=== PATIENT | male | born 1960 | race Caucasian/White ===

== ENCOUNTER 2016-07-31 16:26 | Emergency (ER) | payer BC ==
[~2016-07-31] VITALS: Ht 170.2 cm; Wt 71.0 kg
[~2016-07-31 16:26] MED LIST: ASPI325T4 PO; ATOR10TA65 PO; IBUP-1542 PO; OXYC-281 PO
[2016-07-31 16:29] VITALS: Ht 170.2 cm; Wt 71.0 kg
[2016-07-31] MEDS ORDERED: morphine 4 MG/ML VIAL IV STA (17:02)
[2016-07-31] MEDS ORDERED: ONDANSETRON 4 MG INJ IV STA (17:02)
[2016-07-31] MEDS ORDERED: SOD CHLORIDE 0.9% 1,000 ML IV STA (17:02)
[2016-07-31 17:18] LABS: ADD SCAN DIFF NO
[2016-07-31 17:20] LABS: BASOPHIL # 0.1 10^3/ul (0.0-0.1); BASOPHILS % 0.7 % (0.0-2.0); EOSINOPHILS # 0.2 10^3/ul (0.0-0.5); EOSINOPHILS % 1.8 % (0.0-7.0); HEMATOCRIT 43.7 % (42.0-52.0); HEMOGLOBIN 14.5 g/dl (14.0-18.0); LYMPHOCYTES # 3.2 10^3/ul (0.8-2.9); MEAN CORPUSCULAR HEMOGLOBIN 31.7 pg (29.0-33.0); MEAN CORPUSCULAR HGB CONC 33.2 g/dl (32.0-37.0); MEAN CORPUSCULAR VOLUME 95.4 fl (82.0-101.0); MEAN PLATELET VOLUME 9.9 fl (7.4-10.4); MONOCYTE # 0.5 10^3/ul (0.3-0.9); MONOCYTES % 6.4 % (0.0-11.0); NEUTROPHIL # 4.4 10^3/ul (1.6-7.5); NEUTROPHILS % 52.3 % (39.0-77.0); PLATELET COUNT 425 10^3/UL (140-415); RED BLOOD COUNT 4.58 10^6/ul (4.70-6.10); RED CELL DISTRIBUTION WIDTH 12.1 % (11.5-14.5); WHITE BLOOD COUNT 8.4 10^3/ul (4.8-10.8)
--- NOTE | 2016-07-31 17:24 | ERD ---
ER Documentation Chief Complaint Date/Time DATE: 07/31/16 TIME: 17:23 Chief Complaint RLQ PAIN SINCE THIS AM; DENIES N/V HPI Patient is a 56-year-old male who presents to the ED with right lower quadrant abdominal and right lower inguinal pain 1 day. He states that yesterday he felt a mild sharp pain in his groin. He states that the pain is gotten worse and is now constant. However he states that the pain is relieved when he lays down. She has never had this pain in the past. Denies nausea or vomiting or diarrhea. Denies chest pain or cough or shortness of breath. States that he had a bowel movement yesterday and does not have a history of constipation. Denies headache or dizziness. He has not taken any medicine besides Aleve which was this morning for his symptoms. ROS All systems reviewed and are negative except as per history of present illness. Medications Home Meds Active Scripts Naproxen* (Naprosyn*) 500 Mg Tablet, 500 MG PO BID Y for PAIN AND/OR INFLAMMATION, #30 TAB Prov:ASHLYN HERNANDEZ PA-C 07/31/16 Oxycodone Hcl-Acetaminophen* (Percocet*) 5-325 Mg Tablet, 1 TAB PO Q4H Y for PAIN, #9 TAB Prov:LINDEN RAMSAY MD 10/07/15 Ibuprofen* (Ibuprofen*) 600 Mg Tablet, 600 MG PO Q8 for PAIN AND/OR INFLAMMATION , #30 TAB Prov:LINDEN RAMSAY MD 10/07/15 Reported Medications Aspirin* (Aspirin*) 325 Mg Tablet, 325 MG PO DAILY, TAB 10/07/15 Atorvastatin Calcium (Atorvastatin Calcium) 10 Mg Tablet, 10 MG PO QHS, #30 TAB 10/07/15 Allergies Allergies: Coded Allergies: No Known Drug Allergy (Verified Allergy, Unknown, 10/07/15) PMhx/Soc History of Surgery: No Anesthesia Reaction: No Hx Neurological Disorder: No Hx Respiratory Disorders: No Hx Cardiac Disorders: Yes (HIGH CHOLESTEROL, AFIB) Hx Psychiatric Problems: No Hx Miscellaneous Medical Probl: No Hx Alcohol Use: No Hx Substance Use: No Hx Tobacco Use: No Smoking Status: Never smoker FmHx Family History: No coronary disease, No diabetes, No other Physical Exam Vitals Vital Signs Date Time Temp Pulse Resp B/P Pulse Ox O2 Delivery O2 Flow Rate FiO2 6/5/17 21:58 98.2 60 16 123/76 97 Room Air 07/31/16 16:29 97.3 76 19 128/74 100 Physical Exam GENERAL: Well-developed, well-nourished male. Appears in no acute distress. HEAD: Normocephalic, atraumatic. EYES: Pupils are equally reactive bilaterally. EOMs grossly intact. No conjunctival erythema. ENT: Moist mucous membranes. No uvula deviation. No kissing tonsils. No exudates. NECK: Supple. No lymphadenopathy or thyromegaly. No meningismus. negative kernig. negative brudinski. LUNG: Clear to auscultation bilaterally. No rhonchi, wheezing, rales or coarse breath sounds. HEART: Regular rate and rhythm. No murmurs, rubs or gallops. ABDOMEN: No scars, ecchymosis or rashes noted. Soft, nontender, and nondistended. Positive bowel sounds in all four quadrants. No rebound tenderness , no guarding. (-) McBurneys point tenderness. No CVA tenderness. BACK: No midline tenderness. Extremities: Equal pulses bilaterally. No peripheral clubbing, cyanosis or edema. No unilateral leg swelling. NEUROLOGIC: Alert and oriented. Moving all four extremities. 5/5 strength in all extremities. Normal speech. Steady gait. SKIN: Normal color. Warm and dry. No rashes or lesions. Capillary refill < 2 seconds Result Diagram: 07/31/16 1700 07/31/16 1700 Results 24 hrs Laboratory Tests Test 07/31/16 17:00 White Blood Count 8.410^3/ul Red Blood Count 4.5810^6/ul Hemoglobin 14.5g/dl Hematocrit 43.7% Mean Corpuscular Volume 95.4fl Mean Corpuscular Hemoglobin 31.7pg Mean Corpuscular Hemoglobin Concent 33.2g/dl Red Cell Distribution Width 12.1% Platelet Count 25204^3/UL Mean Platelet Volume 9.9fl Neutrophils % 52.3% Lymphocytes % 38.0% Monocytes % 6.4% Eosinophils % 1.8% Basophils % 0.7% Nucleated Red Blood Cells % 0.0/100WBC Neutrophils # 4.410^3/ul Lymphocytes # 3.210^3/ul Monocytes # 0.510^3/ul Eosinophils # 0.210^3/ul Basophils # 0.110^3/ul Nucleated Red Blood Cells # 0.010^3/ul Urine Color LT. YELLOW Urine Clarity CLEAR Urine pH 6.0 Urine Specific Vista <=1.005 Urine Ketones NEGATIVE Urine Nitrite NEGATIVE Urine Bilirubin NEGATIVE Urine Urobilinogen 0.2 E.U./dL Urine Leukocyte Esterase NEGATIVE Urine Hemoglobin NEGATIVE Urine Glucose NEGATIVE% Urine Total Protein NEGATIVE Sodium Level 142mmol/L Potassium Level 4.1mmol/L Chloride Level 104mmol/L Carbon Dioxide Level 29mmol/L Anion Gap 13 Blood Urea Nitrogen 21mg/dl Creatinine 1.02mg/dl Glucose Level 93mg/dl Calcium Level 9.3mg/dl Total Bilirubin 0.6mg/dl Direct Bilirubin 0.00mg/dl Indirect Bilirubin 0.6mg/dl Aspartate Amino Transf (AST/SGOT) 38IU/L Alanine Aminotransferase (ALT/SGPT) 114IU/L Alkaline Phosphatase 227IU/L Total Protein 8.2g/dl Albumin 4.7g/dl Globulin 3.50g/dl Albumin/Globulin Ratio 1.34 Lipase 141U/L Current Medications Medications (Trade) Dose Ordered Sig/Adriana Route PRN Reason Start Time Stop Time Status Last Admin Dose Admin Sodium Chloride (NS) 1,000 ml @ 1,000 mls/hr Q1H STAT IV 07/31/16 17:02 07/31/16 18:01 DC 07/31/16 17:09 Morphine Sulfate (morphine) 4 mg ONCE STAT IV 07/31/16 17:02 07/31/16 17:03 DC Ondansetron HCl (Zofran Inj) 4 mg ONCE STAT IV 07/31/16 17:02 07/31/16 17:03 DC Procedures/MDM ER COURSE: I kept the patient and/or family informed of laboratory and diagnostic imaging results throughout the emergency room course. EKG, MONITORS, & DIAGNOSTIC IMAGING: [place] [id number] Radiology Main Line: [phone] DIAGNOSTIC IMAGING REPORT Patient: KOTA REED : 1960 Age: 56 Sex: M MR #: [id number] DOS: 07/31/161931 Ordering MD: ASHLYN HERNANDEZ PA-C Location: [facility] Room/Bed: PROCEDURE: US Scrotum. CLINICAL INDICATION: Scrotal pain TECHNIQUE: Multiple sonographic images of the scrotal region were obtained utilizing a linear array transducer with grayscale and color-flow and a Doppler imaging. The images were reviewed on a high-resolution PACS workstation. COMPARISON: No prior studies are available for comparison. FINDINGS: Right hemiscrotum: Testis: Normal in size, morphology and without mass. There is normal blood flow. Testicular size is estimated at 3.5 x 3.1 x 2.7 centimeters. Epididymis: Simple appearing epididymal cyst of 0.7 x 0.5 x 0.4 cm. There is normal blood flow within the epididymis without epididymitis. Hydrocele: Small and simple. Varicocele: None identified. Scrotal skin: Not thickened. Left hemiscrotum: Testis: Normal in size, morphology and without mass. There is normal blood flow. Testicular size is estimated at 4.7 x 3.2 x 2.3 centimeters. Epididymis: Simple cyst of 3 x 3 x 3 mm. Normal blood flow without evidence of epididymitis. Hydrocele: Trace and simple. Varicocele: None identified. Scrotal skin: Not thickened. RPTAT:HJJR IMPRESSION: 1. Simple bilateral epididymal cysts is slightly larger on the right without evidence of epididymitis. 2. Bilateral hydroceles slightly larger on the right. 3. Sonographically normal testes. Physician Ivan Date Time Electronically viewed and signed by Physician Ivan on 07/31/2016 21:03 JR/ CC: ASHLYN HERNANDEZ PA-C [place] [id number] Radiology Main Line: [phone] DIAGNOSTIC IMAGING REPORT Patient: KOTA REED : 1960 Age: 56 Sex: M MR #: [id number] DOS: 07/31/16 1702 Ordering MD: ASHLYN HERNANDEZ PA-C Location: [facility] Room/Bed: PROCEDURE: CT scan of the abdomen and pelvis without IV contrast. CLINICAL INDICATION: 56 real male with abdominal pain. TECHNIQUE: Thin section axial, coronal and sagittal images were performed through the abdomen and pelvis without contrast. Radiation Dose: CTDI: 9.5 and DLP: 540.2 One or more of the following dose reduction techniques were used: - Automated exposure control. - Adjustment of the mA and/or kV according to patient size. Use of iterative reconstruction technique. COMPARISON: Chest x-ray 03/31/2016 06:18 a.m. FINDINGS: Soft tissues: Normal. Lungs and pleural spaces: The lungs are hyperinflated. There are plate-like densities in the medial aspect of the left lower lobe suspicious for parenchymal scarring. No infiltrate or pulmonary nodule is identified. There is minimal peribronchial thickening of the peripheral bronchial wilkinson adjacent to some pleural scarring in the left lower lobe. Heart: Normal. No pericardial effusion is identified. The liver, common bile duct and gallbladder: The liver is unremarkable. There are small gallstones in the gallbladder without gallbladder wall thickening. A 3 mm increased attenuation is noted in the distal extrahepatic common bile duct and may be the result of a small choledochalith. Portions of the distal extrahepatic common bile duct may be mildly dilated. Gastrointestinal: There is no hiatal hernia. The stomach is incompletely distended and normal. The small bowel loops have a normal caliber. There are diverticula in the descending colon. The vermiform appendix is normal. There is fecal material in the sigmoid colon and rectal ampulla. No inguinal hernia is identified. Pancreas: Normal. No pancreatic mass is identified. Kidneys, bladder and adrenal glands : The adrenal glands and kidneys are normal. No obstructing ureterolith or nephrolith is identified. Urinary bladder is normal. Spleen: Normal. Lymph nodes: Normal. Reproductive system and pelvis : Normal. Bony elements: There are degenerative osteophytes in the thoracic and lumbar spine. Normal. Vasculature: Normal. IMPRESSION: 1. Cholelithiasis with multiple small gallstones in the gallbladder. 2. 3 x 5 millimeter lesion of increased attenuation is identified in the distal common bile duct near the head of the pancreas. This lesion is suspicious for a choledocholith. An MRCP or ERCP could be performed for further evaluation. 3. Small airway disease and pleural scarring in the periphery of the left lower lobe. RPTAT:AAJJ Physician Rima Date Time Electronically viewed and signed by Jonathan Tilley Physician on 07/31/2016 18:51 JM/ CC: ASHLYN HERNANDEZ PA-C MEDICATIONS: IV fluids. Patient refused morphine and Zofran. LAB INTERPRETATION: CBC showed no evidence of systemic infection or severe anemia. CMP showed no evidence of electrolyte abnormalities, severe acidosis, alkalosis, ALT of 114 with an alk phosphatase of 227. Lipase showed no evidence of acute pancreatitis. UA showed no evidence of leukocytes, nitrites or hematuria. MEDICAL DECISION MAKING: This is a 56-year-old male who presents with right inguinal pain and right testicular pain 1 day. Vital signs were reviewed. Patient is afebrile. Patient is not hypoxic. Patient is not toxic or ill-appearing. I consulted with my supervising physician Dr. ramsay. A CT scan and blood work were ordered. CT scan showed 3 x 5 millimeter lesion of increased attenuation is identified in the distal common bile duct near the head of the pancreas. This lesion is suspicious for a choledocholith. A scrotal ultrasound was also ordered which bilateral hydroceles. I consulted with my supervising physician Dr. Merritt who reviewed all imaging studies and laboratory studies and came to examine patient at bedside. Patient does not show signs of acute cholangitis or cholecystitis. Patient is aware that he has cholelithiasis and is planning on having outpatient surgery. At this point patient does not need to be admitted and can be treated outpatient Pankaj. Patient's pain is likely related to the hydrocele. Low suspicion for pyelonephritis, UTI, nephrolithiasis, appendicitis , testicular torsion, incarcerated or strangulated hernia. Low suspicion for ACS, AAA, perforated ulcer, bowel obstruction, cholecystitis, choledocholithiasis, cholangitis, pancreatitis, hepatic abscess, appendicitis, diverticulitis, gastroenteritis, hepatitis, peptic ulcer disease, DISCHARGE: At this time, patient is stable for discharge and outpatient management with no new complaints during the ER course. Patient was sent home with Ronn and a copy of all imaging studies. Patient will be discharged home with instructions to recheck for new or worsening symptoms such as fever, nausea, weakness, LOC and to follow up with primary care in the next 1-2 days. Patient was advised to return to the ER for any new or worsening symptoms. Plan was discussed and patient and/or family understands and agrees. Home instructions were given. Departure Diagnosis: Primary Impression: Hydrocele Hydrocele type: unspecified Qualified Code: N43.3 - Hydrocele, unspecified hydrocele type Condition: Stable ASHLYN HERNANDEZ PA-C Jul 31, 2016 17:24
[2016-07-31 17:37] LABS: ADD UMIC NO; URINE BILIRUBIN (Dip) NEGATIVE (NEGATIVE); URINE BLOOD (Dip) NEGATIVE (NEGATIVE); URINE COLOR LT. YELLOW (YELLOW); URINE GLUCOSE (Dip) NEGATIVE (NEGATIVE); URINE KETONES (Dip) NEGATIVE (NEGATIVE); URINE LEUKOCYTE ESTERASE (Dip) NEGATIVE (NEGATIVE); URINE NITRITE (Dip) NEGATIVE (NEGATIVE); URINE TOTAL PROTEIN (Dip) NEGATIVE (NEGATIVE); URINE UROBILINOGEN (Dip) 0.2 E.U./dL (0.1-1.0)
[2016-07-31 17:40] LABS: ALBUMIN 4.7 g/dl (3.3-4.9); ALBUMIN/GLOBULIN RATIO 1.34; BILIRUBIN,INDIRECT 0.6 mg/dl (0-1.1); BILIRUBIN,TOTAL 0.6 mg/dl (0.2-1.3); CALCIUM 9.3 mg/dl (8.4-10.2); CREATININE 1.02 mg/dl (0.61-1.24); POTASSIUM 4.1 mmol/L (3.5-5.1); TOTAL PROTEIN 8.2 g/dl (6.1-8.1)
--- NOTE | 2016-07-31 18:51 | RADRPT ---
PROCEDURE: CT scan of the abdomen and pelvis without IV contrast. CLINICAL INDICATION: 56 real male with abdominal pain. TECHNIQUE: Thin section axial, coronal and sagittal images were performed through the abdomen and pelvis without contrast. Radiation Dose: CTDI: 9.5 and DLP: 540.2 One or more of the following dose reduction techniques were used: - Automated exposure control. - Adjustment of the mA and/or kV according to patient size. Use of iterative reconstruction technique. COMPARISON: Chest x-ray 03/31/2016 06:18 a.m. FINDINGS: Soft tissues: Normal. Lungs and pleural spaces: The lungs are hyperinflated. There are plate-like densities in the media l aspect of the left lower lobe suspicious for parenchymal scarring. No infiltrate or pulmonary nod ule is identified. There is minimal peribronchial thickening of the peripheral bronchial wilkinson jackson cent to some pleural scarring in the left lower lobe. Heart: Normal. No pericardial effusion is identified. The liver, common bile duct and gallbladder: The liver is unremarkable. There are small gallstones in the gallbladder without gallbladder wall thickening. A 3 mm increased attenuation is noted in th e distal extrahepatic common bile duct and may be the result of a small choledochalith. Portions of the distal extrahepatic common bile duct may be mildly dilated. Gastrointestinal: There is no hiatal hernia. The stomach is incompletely distended and normal. The small bowel loops have a normal caliber. There are diverticula in the descending colon. The vermi form appendix is normal. There is fecal material in the sigmoid colon and rectal ampulla. No ingui nal hernia is identified. Pancreas: Normal. No pancreatic mass is identified. Kidneys, bladder and adrenal glands : The adrenal glands and kidneys are normal. No obstructing ure terolith or nephrolith is identified. Urinary bladder is normal. Spleen: Normal. Lymph nodes: Normal. Reproductive system and pelvis : Normal. Bony elements: There are degenerative osteophytes in the thoracic and lumbar spine. Normal. Vasculature: Normal. IMPRESSION: 1. Cholelithiasis with multiple small gallstones in the gallbladder. 2. 3 x 5 millimeter lesion of increased attenuation is identified in the distal common bile duct ne ar the head of the pancreas. This lesion is suspicious for a choledocholith. An MRCP or ERCP could be performed for further evaluation. 3. Small airway disease and pleural scarring in the periphery of the left lower lobe. RPTAT:AAJJ Jonathan Tilley Physician Date Time Electronically viewed and signed by Jonathan Tilley Physician on 07/31/2016 18:51 JM/
--- NOTE | 2016-07-31 21:04 | RADRPT ---
PROCEDURE: US Scrotum. CLINICAL INDICATION: Scrotal pain TECHNIQUE: Multiple sonographic images of the scrotal region were obtained utilizing a linear arra y transducer with grayscale and color-flow and a Doppler imaging. The images were reviewed on a high -resolution PACS workstation. COMPARISON: No prior studies are available for comparison. FINDINGS: Right hemiscrotum: Testis: Normal in size, morphology and without mass. There is normal blood flow. Testicular size is estimated at 3.5 x 3.1 x 2.7 centimeters. Epididymis: Simple appearing epididymal cyst of 0.7 x 0.5 x 0.4 cm. There is normal blood flow wit hin the epididymis without epididymitis. Hydrocele: Small and simple. Varicocele: None identified. Scrotal skin: Not thickened. Left hemiscrotum: Testis: Normal in size, morphology and without mass. There is normal blood flow. Testicular size i s estimated at 4.7 x 3.2 x 2.3 centimeters. Epididymis: Simple cyst of 3 x 3 x 3 mm. Normal blood flow without evidence of epididymitis. Hydrocele: Trace and simple. Varicocele: None identified. Scrotal skin: Not thickened. RPTAT:HJJR IMPRESSION: 1. Simple bilateral epididymal cysts is slightly larger on the right without evidence of epididymit is. 2. Bilateral hydroceles slightly larger on the right. 3. Sonographically normal testes. Physician Ivan Date Time Electronically viewed and signed by Physician Ivan on 07/31/2016 21:03 JR/
[2016-07-31] MEDS ORDERED: NAPR-260 PO (21:49)
[2016-07-31 21:58] VITALS: BP 123/76; PULSE 60; RESP 16; TEMP 98.2
== END 2016-07-31 21:59 | disposition home or self-care (01) ==
LOC: FTE 16:26 → EEVIPCON 16:26 → FTE 21:59
DX: N43.3 Hydrocele, unspecified (principal); Z79.82 Long term (current) use of aspirin
CPT/HCPCS: 36415; 74176; 76870; 80053; 81003; 83690; 85025; 99285; J7030

== ENCOUNTER 2018-07-12 01:23 | Emergency (ER) | payer BC ==
[~2018-07-12] VITALS: Wt 77.0 kg
[~2018-07-12 01:23] MED LIST changes: +ASPI325T30 PO; -ASPI325T4 PO; +NAPR-985 PO
[2018-07-12 01:36] VITALS: BP 144/81; PULSE 79; RESP 19
--- NOTE | 2018-07-12 02:37 | ERD ---
ER Documentation Chief Complaint Chief Complaint bib self, cc: right shoulder pain s/p fall, mechanical fall, HPI This is a 58-year-old male who presents here in the emergency department with complaints of right shoulder pain that started at 12 midnight. Stated that he was walking, slipped, landed on his right shoulder. Stated that he has history of right shoulder dislocation. Denies headache, head injury, loss of consciousness, dizziness, neck pain, neck stiffness, throat pain, difficulty swallowing, difficulty breathing lying flat, chest pain, back pain, abdominal pain, nausea, vomiting, constipation, diarrhea, urinary symptoms, loss of bowel and bladder control, trauma, injury, falls, d ifficulty walking due to pain, numbness or tingling sensation, calf pain, recent travel, recent major surgery in the last 3 weeks, calf pain, recent long travel, recent exposure to any illness, recent antibiotic use in the last 3 months, fever, chills, seizures. Past medical history: Surgical history: Social: Denies smoking, use of alcoholic beverages, use of illegal drugs. ROS All systems reviewed and are negative except as per history of present illness. Medications Home Meds Active Scripts Ibuprofen* (Motrin*) 800 Mg Tab, 800 MG PO Q6H PRN for PAIN AND OR ELEVATED TEMP, #30 TAB Prov:EDWARD SHIN 07/12/18 Naproxen* (Naprosyn*) 500 Mg Tablet, 500 MG PO BID PRN for PAIN AND/OR INFLAMMATION, #30 TAB Prov:ASHLYN HERNANDEZ PA-C 07/31/16 Oxycodone Hcl-Acetaminophen* (Percocet*) 5-325 Mg Tablet, 1 TAB PO Q4H PRN for PAIN, #9 TAB Prov:LINDEN ROSA MD 10/07/15 Ibuprofen* (Ibuprofen*) 600 Mg Tablet, 600 MG PO Q8 for PAIN AND/OR INFLAMMATION, #30 TAB Prov:LINDEN ROSA MD 10/07/15 Reported Medications Aspirin* (Aspirin*) 325 Mg Tablet, 325 MG PO DAILY, TAB 10/07/15 Atorvastatin Calcium (Atorvastatin Calcium) 10 Mg Tablet, 10 MG PO QHS, #30 TAB 10/07/15 Allergies Allergies: Coded Allergies: No Known Drug Allergy (Verified Allergy, Unknown, 10/07/15) PMhx/Soc History of Surgery: No Anesthesia Reaction: No Hx Neurological Disorder: No Hx Respiratory Disorders: No Hx Cardiac Disorders: Yes (HIGH CHOLESTEROL, AFIB) Hx Psychiatric Problems: No Hx Miscellaneous Medical Probl: No Hx Alcohol Use: No Hx Substance Use: No Hx Tobacco Use: No Smoking Status: Never smoker Physical Exam Vitals Vital Signs Date Temp Pulse Resp B/P (MAP) Pulse Ox O2 O2 Flow FiO2 Time Delivery Rate 07/12/18 98.7 79 19 144/81 100 01:36 (102) Physical Exam Const: No acute distress Head: Atraumatic. Normocephalic. Scalp is intact. Eyes: Normal Conjunctiva ENT: Normal External Ears, Nose and Mouth. Neck: Full range of motion. No meningismus. Resp: Clear to auscultation bilaterally Cardio: Regular rate and rhythm, no murmurs Abd: Soft, non tender, non distended. Normal bowel sounds Skin: No petechiae or rashes Back: No midline or flank tenderness. C-spine/T-spine/L-spine are midline with good and full range of motion and is no swelling/deformity/point of tenderness. Ext: No cyanosis, or edema. Right shoulder: Has tenderness to palpation. No obvious deformity. No swelling. Skin is not warm to touch. Has good and full range of motion. No suspicion of septic joint. Right clavicle: No crepitus/deformity/tenderness. Right humerus/elbow/forearm/wrist/hand: Unremarkable. Right radial pulses within normal limits. Has good and full function of the right hand. Neur: Awake and alert. No neurological deficits. Psych: Normal Mood and Affect Results 24 hrs Current Medications Medications Dose Sig/Adriana Start Time Status Last (Trade) Ordered Route PRN Stop Time Admin Dose Reason Admin Ibuprofen 800 mg ONCE ONCE 07/12/18 DC 07/12/18 (Motrin) PO 03:00 02:48 07/12/18 03:01 Procedures/MDM Diagnostic tests: X-ray of the right shoulder: Unremarkable right shoulder. Treatment: Motrin. Arm sling. Re-evaluation: No neurovascular deficit prior to and after the application of sling. Differential diagnosis I have low suspicion for septic joint, displaced fracture, compartment syndrome, fracture. Final diagnosis: Shoulder contusion. Prescription: Motrin. Follow-up with PCP in the next 24-48 hours. Follow-up with orthopedic tech in the next 24 to 48 hours. Come back here in the emergency department for any new symptoms or any worsening symptoms. All questions and concerns were answered. Patient and family members verbalized understanding and agreed with plan of care. Hemodynamically stable on discharge. Departure Diagnosis: Primary Impression: Shoulder pain Additional Impressions: Shoulder injury Shoulder contusion Condition: Stable Additional Instructions: Follow-up with PCP in the next 24-48 hours. Follow-up with orthopedic tech in the next 24 to 48 hours. Come back here in the emergency department for any new symptoms or any worsening symptoms. EDWARD SHIN July 12, 2018 02:37
[2018-07-12] MEDS ORDERED: IBUPROFEN 800 MG TAB PO ONE (03:00)
[2018-07-12] MEDS ORDERED: IBUP800T48 PO (04:30)
== END 2018-07-12 04:39 | disposition home or self-care (01) ==
LOC: FTE 01:23
DX: S40.011A Contusion of right shoulder, initial encounter (principal); W01.0XXA Fall on same level from slipping, tripping and stumbling without subsequent striking against object, initial encounter; Z79.82 Long term (current) use of aspirin